=== PATIENT | female | born 1990 | race African-American/Black ===

== ENCOUNTER → 2023-10-29 07:51 | Outpatient (CLI) | payer OTHER, SELFPAY ==
--- NOTE | 2023-10-29 | DI.US.S_ITS ---
PROCEDURE: US PELVIC COMPLETE INDICATIONS: DYSPAREUNIA TECHNIQUE: Real-time scanning was performed of the pelvic organs, with image documentation. Additional endovaginal scanning was necessary due to incomplete visualization of the adnexal and endometrial structures by transabdominal scanning. COMPARISON: None. FINDINGS: Uterus: There is single IUP in the uterus. Uterus measures 11.5 x 5.3 cm. Cervix is 2.4 cm. The CRL is 0.79 cm, consistent with gestational age 6 week 5 day. Yolk sac is 0.45 cm. GSD is 2.76 cm consistent with gestational age 7 weeks 6 days heart rate is 143 beats per minute. Ovaries: The right ovary is 1.9 x 3.1 x 1.3 cm. The left ovary is 3.1 x 2.2 x 2.6 cm. No abnormalities demonstrated in the ovaries. No adnexal masses are seen. Other: No pathologic free abdominal or pelvic fluid. IMPRESSION: Single live IUP, ultrasound gestational age 6 weeks 5 days, YASMEEN June 18, 2024. >> We strive to produce accurate, complete, and clear reports of imaging services. To assist us in improving patient care, this report was composed using standard report templates and voice recognition software. Therefore, it may contain abnormal punctuation, insertions and/or omissions. Occasional wrong-word or sound-alike substitutions may occur. Though we review the report and make efforts to correct it, we do recommend that the report be read carefully in proper context to recognize any text inaccuracies. Dictated by: Alberto Butler M.D. on 11/01/2023 at 10:41 Approved by: Alberto Butler M.D. on 11/01/2023 at 10:56
== END ==
PROVIDERS: Referring Provider Nurse Practitioner Family; Visit Provider Nurse Practitioner Family
DX: N94.10 Unspecified dyspareunia (principal); Z33.1 Pregnant state, incidental; Z3A.01 Less than 8 weeks gestation of pregnancy
CPT/HCPCS: 76856

== ENCOUNTER → 2023-11-26 10:36 | Outpatient (CLI) | payer OTHER, SELFPAY ==
[2023-11-26 11:33] LABS: Appearance Urine UA CLEAR; Bilirubin Urine UA NEGATIVE (NEGATIVE); Color Urine UA YELLOW; Glucose Urine UA NEGATIVE (Negative); Ketones Urine UA TRACE (NEGATIVE); Leukocyte Esterase Urine UA NEGATIVE (NEGATIVE); Nitrite Urine UA NEGATIVE (Negative); Occult Blood Urine UA NEGATIVE (Negative); Protein Urine UA NEGATIVE (Negative); Urobilinogen Urine UA 0.2 E.U./dL (0.2)
[2023-11-26 11:56] LABS: Add Manual Diff / Slide Review NO; Basophils Absolute Auto 0 /uL (0-100); Basophils Percent Auto 0.2 % (0-2); Eosinophils Absolute Auto 100 /uL (0-450); Eosinophils Percent Auto 1.3 % (2-4); Hematocrit 33.5 % (36-46); Hemoglobin 11.8 g/dL (12.0-16.0); Lymphocytes Absolute Auto 1600 /uL (1100-4500); Lymphocytes Percent Auto 21.9 % (25-40); Mean Corpuscular HGB Conc 35.1 % (30-36); Mean Corpuscular Hemoglobin 30.4 PG (26-34); Mean Corpuscular Volume 86.8 fL (80-100); Monocytes Absolute Auto 500 /uL (0-900); Monocytes Percent Auto 7.3 % (3-14); Neutrophils Absolute Auto 5100 /uL (1500-7000); Neutrophils Percent Auto 69.3 % (50-75); Platelet Count 281 X10^3/uL (150-400); Red Blood Cell Count 3.86 X10^6/uL (4.0-5.2); Red Cell Distribution Width 13.2 % (11.6-14.8); White Blood Cell Count 7.4 X10^3/uL (4.5-11.0)
[2023-11-26 12:02] LABS: Natera Collection Specimen Collected
[2023-11-26 12:16] LABS: Alanine Aminotransferase 17 IU/L (<35); Aspartate Aminotransferase 20 IU/L (14-36); BUN Creatinine Ratio 14.3 (6-22); Blood Urea Nitrogen 8 mg/dL (7-17); Estimated Glomerular Filt Rate > 60 mL/min (>60); Uric Acid 3.2 mg/dL (2.5-6.2)
[2023-11-26 12:47] LABS: Hepatitis B Surface Antigen NEGATIVE s/c (NEGATIVE); Rubella Antibody IgG 8.3 IU/mL (>15)
[2023-11-26 12:57] LABS: HIV 1 & 2 Ab/Ag 4th Gen Combo NEGATIVE (NEGATIVE)
[2023-11-27 06:12] LABS: RPR Screen Non Reactive (Non Reactive)
[2023-11-27 07:36] LABS: Varicella IgG Antibody 552 index (Immune >165)
[2023-11-29 19:02] LABS: Hep C Virus Ab w/Reflex Quant NEGATIVE s/c (NEGATIVE)
== END ==
PROVIDERS: Referring Provider Family Medicine; Visit Provider Family Medicine
DX: O09.521 Supervision of elderly multigravida, first trimester (principal); I10 Essential (primary) hypertension
CPT/HCPCS: 36415; 80055; 81003; 82565; 84450; 84460; 84520; 84550; 86787; 86803; 86850; 86900; 86901; 87086; 87389

== ENCOUNTER → 2023-12-01 12:15 | Outpatient (CLI) | payer OTHER, SELFPAY ==
[2023-12-01 14:53] LABS: HCG Quantitative /Beta subunit 194190 mIU/mL
== END ==
PROVIDERS: Referring Provider Family Medicine; Visit Provider Family Medicine
DX: O20.9 Hemorrhage in early pregnancy, unspecified (principal)
CPT/HCPCS: 36415; 84702

== ENCOUNTER → 2023-12-03 07:45 | Outpatient (CLI) | payer OTHER, SELFPAY ==
[2023-12-03 10:55] LABS: HCG Quantitative /Beta subunit 200040 mIU/mL
== END ==
PROVIDERS: Referring Provider Family Medicine; Visit Provider Family Medicine
DX: O20.9 Hemorrhage in early pregnancy, unspecified (principal)
CPT/HCPCS: 36415; 84702

== ENCOUNTER → 2024-01-21 10:49 | Outpatient (CLI) | payer OTHER, SELFPAY ==
[2024-01-21 12:02] LABS: Creatinine Urine Random 32.55 mg/dL; Protein (Total) Urine Random 12 mg/dL (0-12); Protein Creatinine Ratio Urine 0.36 GRAM/24H
== END ==
PROVIDERS: Referring Provider Family Medicine; Visit Provider Family Medicine
DX: O10.912 Unspecified pre-existing hypertension complicating pregnancy, second trimester (principal); Z3A.18 18 weeks gestation of pregnancy
CPT/HCPCS: 82570; 84156

== ENCOUNTER → 2024-02-04 13:58 | Outpatient (CLI) | payer OTHER, SELFPAY ==
--- NOTE | 2024-02-04 13:59 | DI.US.S_ITS ---
PROCEDURE: US OB <= 14 WEEKS FETUS INDICATIONS: Anatomy scan OUTSIDE/PRIOR DATING DATA: Last menstrual period (LMP): 09/11/2023 LMP-based estimated date of delivery (YASMEEN): 06/17/2024 First dating scan (date and location): 10/29/2023 Estimated date of delivery (YASMEEN) from first dating scan: 06/18/2024 The calculations are made using the working YASMEEN of 06/17/2024. TECHNIQUE: Real-time scanning was performed of the fetus, with image documentation and biometric measurements. Endovaginal scanning: Not performed COMPARISON: 10/29/2023. FINDINGS: General: A single living intrauterine gestation is present. Presentation: Vertex Placenta: Placental position is posterior, without previa. Amniotic fluid index: 25.8 cm, normal range is 5-24 cm. Single deepest vertical pocket is 8.1 cm. heart rate: 145 beats per minute. Maternal cervical canal: Closed and measures 5.1 cm long. Normal lower limit is 2.5 cm. biometrics: Biparietal diameter: 4.8 cm, 20 weeks, 4 days. Head circumference: 19.0 cm, 21 weeks, 2 days. Abdominal circumference: 15.6 cm, 20 weeks, 6 days. Femur length: 3.8 cm, 22 weeks, 0 day. Clinically estimated gestational age: 20 weeks, 6 days Composite gestational age from present scan: 21 weeks, 1 day Estimated weight and percentile: 414 g, 70%. Anatomic survey: Neuro: Ventricles are non-dilated at less than 10 mm. Cisterna magna is normal at 3-11 mm. Cerebellum is normal in size and morphology. Nuchal skin fold: Normal at less than 6 mm between 14-21 weeks gestational age. Face: Nose and lips, facial profile are normal. Spine: No evidence for spina bifida. Heart: 4-chambered heart is present, with normal ventricular outflow tracts. Diaphragm: Diaphragm is intact. Stomach: Left-sided stomach is present. Kidneys: No hydronephrosis. Normal is less than 5 mm in 2nd trimester, less than 7 mm in 3rd trimester. Cord: 3-vessel cord has orthotopic insertion. Bladder: Normal in size. Extremities: All 4 extremities identified. IMPRESSION: 1. Single live intrauterine gestation with fetus in vertex presentation. heart rate is 145 beats per minute. Increased SUNNY at 25.8 cm suggestive of polyhydramnios. 2. Normal growth with estimated weight at 70%. 3. Normal anatomic survey. We strive to produce accurate, complete, and clear reports of imaging services. To assist us in improving patient care, this report was composed using standard report templates and voice recognition software. Therefore, it may contain abnormal punctuation, insertions and/or omissions. Occasional wrong-word or sound-alike substitutions may occur. Though we review the report and make efforts to correct it, we do recommend that the report be read carefully in proper context to recognize any text inaccuracies. Dictated by: Kt Winter M.D. on 02/04/2024 at 17:17 Approved by: Kt Winter M.D. on 02/04/2024 at 17:20
== END ==
PROVIDERS: Referring Provider Family Medicine; Visit Provider Family Medicine
DX: Z34.80 Encounter for supervision of other normal pregnancy, unspecified trimester (principal); Z3A.21 21 weeks gestation of pregnancy
CPT/HCPCS: 76811

== ENCOUNTER → 2024-03-03 10:47 | Outpatient (CLI) | payer OTHER, SELFPAY ==
--- NOTE | 2024-03-03 10:48 | DI.US.S_ITS ---
PROCEDURE: US OB LIMITED INDICATIONS: f/u polyhydramnios OUTSIDE/PRIOR DATING DATA: Last menstrual period (LMP): 09/11/2023. LMP-based estimated date of delivery (YASMEEN): 06/17/2024. First dating scan (date and location): 10/29/2023. Estimated date of delivery (YASMEEN) from first dating scan: 06/18/2024. The calculations are made using the working YASMEEN of 06/17/2024. TECHNIQUE: Real-time scanning was performed of the fetus, with image documentation. Endovaginal scanning: No COMPARISON: None. FINDINGS: A single living intrauterine gestation is present. Presentation: Vertex. Placenta: Placental position is posterior, without previa. Amniotic fluid index: 17.1 cm, normal range is 5-24 cm. Single deepest vertical pocket is 5.6 cm. heart rate: 137 beats per minute. Maternal cervical canal: 5.0 cm long. Normal lower limit is 2.5 cm. Clinically estimated gestational age: 24 week 6 day Estimated gestational age from initial scan: Not applicable. IMPRESSION: Single live intrauterine consistent with 24 week 6 day gestation Amniotic fluid index 17.1 cm, no polyhydramnios Approved by: Antwan Patel M.D. on 03/03/2024 at 17:56
== END ==
PROVIDERS: Referring Provider Family Medicine; Visit Provider Family Medicine
DX: Z34.82 Encounter for supervision of other normal pregnancy, second trimester (principal); Z3A.24 24 weeks gestation of pregnancy
CPT/HCPCS: 76815

== ENCOUNTER → 2024-03-24 08:22 | Outpatient (CLI) | payer OTHER, SELFPAY ==
[2024-03-24 09:03] LABS: Alanine Aminotransferase 35 IU/L (<35); Albumin 3.2 g/dL (3.5-5.0); Albumin Globulin Ratio 1.2 (1.0-2.8); Alkaline Phosphatase 71 U/L (38-126); Aspartate Aminotransferase 31 IU/L (14-36); BUN Creatinine Ratio 15.8 (6-22); Bilirubin Total 0.3 mg/dL (0.2-1.3); Blood Urea Nitrogen 9 mg/dL (7-17); Calcium 8.9 mg/dL (8.4-10.2); Carbon Dioxide 23 mmol/L (22-32); Chloride 106 mmol/L (98-107); Estimated Glomerular Filt Rate > 60 mL/min (>60); Globulin 2.6 g/dL (1.7-4.1); Glucose 94 mg/dL (70-100); HEMOLYSIS < 15 (0-50); Potassium 3.5 mmol/L (3.4-5.1); Sodium 134 mmol/L (137-145); Total Protein 5.8 g/dL (6.3-8.2)
== END ==
LOC: LAB 08:22
PROVIDERS: Referring Provider Family Medicine; Visit Provider Family Medicine
DX: O10.919 Unspecified pre-existing hypertension complicating pregnancy, unspecified trimester
CPT/HCPCS: 36415; 80053

== ENCOUNTER → 2024-03-25 10:39 | Outpatient (CLI) | payer OTHER, SELFPAY ==
[2024-03-25 11:17] LABS: Hematocrit 31.4 % (36-46); Hemoglobin 10.8 g/dL (12.0-16.0)
[2024-03-25 12:36] LABS: GTT (PREG) 1 Hour PP 50gm Dose 98 mg/dL (76-139)
== END ==
LOC: LAB 10:40
PROVIDERS: Referring Provider Family Medicine; Visit Provider Family Medicine
DX: Z34.80 Encounter for supervision of other normal pregnancy, unspecified trimester (principal)
CPT/HCPCS: 36415; 82950; 85014; 85018

== ENCOUNTER → 2024-05-19 08:19 | Outpatient (CLI) | payer OTHER, SELFPAY ==
[2024-05-20 12:34] LABS: Strep Grp B PCR NEG for Grp B Strep
== END ==
PROVIDERS: Visit Provider Family Medicine
DX: Z34.80 Encounter for supervision of other normal pregnancy, unspecified trimester (principal); Z36.85 Encounter for antenatal screening for Streptococcus B
CPT/HCPCS: 87653

== ENCOUNTER → 2024-05-29 11:20 | Outpatient (CLI) | payer OTHER, SELFPAY ==
[2024-05-29 12:07] LABS: Influenza A - CEPHEID Flu A POSITIVE (NEGATIVE); Influenza B - CEPHEID Flu B NEGATIVE (NEGATIVE); Respiratory Syncytial Virus Negative (Negative)
[2024-05-29 12:09] LABS: COVID-19 CEPHEID 4-PLEX PCR Negative (Negative)
== END ==
PROVIDERS: Visit Provider Nurse Practitioner Family
DX: J02.9 Acute pharyngitis, unspecified (principal); R05.9 Cough, unspecified
CPT/HCPCS: 0241U; 87070

== ENCOUNTER 2024-06-02 15:30 | Outpatient (CLI) | payer OTHER, SELFPAY ==
--- NOTE | 2024-06-02 16:44 | PM.OBTRLD ---
Visit Information Visit Information Date of evaluation: 06/02/24 Primary OB Provider: Mikie Faust Reason for Evaluation: Yes non-stress test non-stress test reason: hypertension/pre-eclampsia Comments/Additional reasons for admission: 33yo at [place] 37+6 presents for NST due to cHTN. [facility] Medical History (Updated 12/24/23 @ 11:03 by Mikie Faust MD) Pre-eclampsia, Diastasis recti Increased intraocular pressure (~2021) Normal endoscopic ultrasound of upper GI tract GERD (gastroesophageal reflux disease) (~2012) Abnormal Pap smear of cervix Surgical History (Updated 10/22/23 @ 15:40 by Erin Schulte, RN) History of removal of skin mole [place] teeth extracted History of surgical removal of ganglion cyst Status post cervical polyp removal (~2011) Family History (Updated 10/22/23 @ 16:22 by Erin Schulte, RN) Grandmother Diabetes mellitus Hypertension Mesothelioma Rheumatoid arthritis Carpal tunnel syndrome Grandfather End stage renal failure on dialysis Diabetes mellitus Grandmother Diabetes mellitus Father Pre-diabetes Mother Hypertension Pre-diabetes Sarcomatoid carcinoma of lung Brother Lupus Cardiomegaly Gunshot injury Sister Childhood asthma Brother Childhood asthma Son Seasonal allergies Multiple food allergies Eczema Social History marital status: number of children: 1 household members: spouse and children lives independently: Yes caregiver/support person: No housing: condominium ([facility]) pets and animals: No education level: master's degree 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) current occupational exposures/hazards: Yes (asbestos, paint fumes, unsanitary housing conditions) special magali needs: No travel history: recent (domestic only) seatbelt use: always water heater temp set < 120 deg: Yes working smoke detector in home: Yes fire extinguisher in home: No carbon monox detector in home: Yes firearms in home: No do you feel safe at home: Yes Smoking Status: Never smoker second hand exposure: No alcohol intake: former (very occasional glass of wine when not ) substance use type: does not use and other (CBD oil, not while /) during the past year weight has: remained stable well-balanced diet: daily or most days daily servings fruits/ve or more times/day caffeine: Yes (minimal, occasional cup coffee in AM) Type(s) of exercise: walking and other Objective Labs 06/02/24 16:25 06/02/24 16:25 Evaluation Evaluation Baseline heart rate: 125 Variability: Moderate (11-25) monitor accelerations: Present Monitor Decelerations: Absent Category of Tracing: Reactive Status: Category l Diagnosis, Plan/Disposition Final Diagnosis (1) Chronic hypertension affecting : Status: Acute Plan/Disposition Plan: NST reactive, Cat 1 FHT. Continue routine monitoring. OB Disposition: home
[2024-06-02 16:49] LABS: Add Manual Diff / Slide Review NO; Basophils Absolute Auto 0 /uL (0-100); Basophils Percent Auto 0.3 % (0-2); Eosinophils Absolute Auto 0 /uL (0-450); Eosinophils Percent Auto 0.5 % (2-4); Hematocrit 32.2 % (36-46); Hemoglobin 11.1 g/dL (12.0-16.0); Lymphocytes Absolute Auto 1300 /uL (1100-4500); Lymphocytes Percent Auto 18.1 % (25-40); Mean Corpuscular HGB Conc 34.5 % (30-36); Mean Corpuscular Hemoglobin 31.2 PG (26-34); Mean Corpuscular Volume 90.4 fL (80-100); Monocytes Absolute Auto 600 /uL (0-900); Monocytes Percent Auto 9.1 % (3-14); Neutrophils Absolute Auto 5100 /uL (1500-7000); Platelet Count 288 X10^3/uL (150-400); Red Blood Cell Count 3.56 X10^6/uL (4.0-5.2); Red Cell Distribution Width 13.7 % (11.6-14.8); White Blood Cell Count 7.1 X10^3/uL (4.5-11.0)
[2024-06-02 16:52] LABS: Alanine Aminotransferase 37 IU/L (<35); Albumin 3.4 g/dL (3.5-5.0); Alkaline Phosphatase 180 U/L (38-126); Aspartate Aminotransferase 38 IU/L (14-36); BUN Creatinine Ratio 9.2 (6-22); Bilirubin Total 0.4 mg/dL (0.2-1.3); Blood Urea Nitrogen 6 mg/dL (7-17); Calcium 9.7 mg/dL (8.4-10.2); Carbon Dioxide 23 mmol/L (22-32); Chloride 105 mmol/L (98-107); Estimated Glomerular Filt Rate > 60 mL/min (>60); Globulin 3.3 g/dL (1.7-4.1); Glucose 120 mg/dL (70-100); HEMOLYSIS < 15 (0-50); Sodium 136 mmol/L (137-145); Total Protein 6.7 g/dL (6.3-8.2)
[2024-06-02 18:08] LABS: Urine Chlamydia NOT DETECTED; Urine N gonorrhoeae NOT DETECTED
== END 2024-06-02 16:50 | disposition home or self-care (01) ==
LOC: OB 06-05 08:23
PROVIDERS: Referring Provider Family Medicine; Visit Provider Family Medicine
DX: O10.913 Unspecified pre-existing hypertension complicating pregnancy, third trimester (principal); Z3A.36 36 weeks gestation of pregnancy
CPT/HCPCS: 59025; 80053; 85025; 87491; 87591; G0378; G0379

== ENCOUNTER 2024-06-04 04:03 | Inpatient (IN) | payer OTHER, SELFPAY ==
[2024-06-04 05:25] LABS: Add Manual Diff / Slide Review NO; Basophils Absolute Auto 100 /uL (0-100); Basophils Percent Auto 0.8 % (0-2); Eosinophils Absolute Auto 100 /uL (0-450); Eosinophils Percent Auto 0.8 % (2-4); Hemoglobin 10.6 g/dL (12.0-16.0); Lymphocytes Absolute Auto 1500 /uL (1100-4500); Lymphocytes Percent Auto 22.1 % (25-40); Mean Corpuscular HGB Conc 34.3 % (30-36); Mean Corpuscular Hemoglobin 31.2 PG (26-34); Monocytes Absolute Auto 600 /uL (0-900); Monocytes Percent Auto 9.5 % (3-14); Neutrophils Absolute Auto 4500 /uL (1500-7000); Neutrophils Percent Auto 66.8 % (50-75); Platelet Count 330 X10^3/uL (150-400); Red Blood Cell Count 3.41 X10^6/uL (4.0-5.2); Red Cell Distribution Width 13.8 % (11.6-14.8); White Blood Cell Count 6.7 X10^3/uL (4.5-11.0)
[2024-06-04] MEDS: BENZOCAINE/MENTHOL 1 LOZ PKT 1 EACH PO ×4 (07:43→18:49)
--- NOTE | 2024-06-04 12:36 | PM.OBHP.IH.1 ---
OB HPI Date/Time Date of admission: 06/04/24 Date Patient Seen: 06/04/24 Time Patient Seen: 12:36 History of Present Condition Chief complaint: Labor YASMEEN Calculator Estimated Delivery Date Method Current WG Current Estimate 06/17/24 LMP (Certain) 38w 1d Other Estimates 06/18/24 Ultrasound #1 38w 0d Estimated Gestational Age (weeks): 38+1 : 2 Para: 1 Narrative: 33yo presenting in labor. SROM clear fluid early this morning around 0330. +FM, mild bloody show and lost mucous plug a few hours ago. No contractions initially but now feeling pretty regularly. course notable for AMA, cHTN well controlled w/o medication (on ASA 81 mg). care: good care Dating criteria OB: LMP confirmed by 1st trimester US Ultrasounds: normal 1st trimester US and normal mid trimester US Medical complications OB: cardiovascular (cHTN) Preadmission Labs Last OB Lab Results: Blood Type O Positive 06/04/24 05:10 Antibody Screen Negative 06/04/24 05:10 Hct 31.0 % (36-46) L 06/04/24 05:10 Hgb 10.6 g/dL (12.0-16.0) L 06/04/24 05:10 Hep Bs Antigen Negative s/c (NEGATIVE) 11/26/23 11:00 Hepatitis C Antibody Negative s/c (NEGATIVE) 11/26/23 11:00 Rubella Antibody 8.3 IU/mL (>15) L 11/26/23 11:00 VZV IgG Antibody 552 index (Immune >165) 11/26/23 11:00 Glucose 1 Hr 50 gm 98 mg/dL (76-139) 03/25/24 11:50 Group B Strep (PCR) Neg for grp b strep 05/19/24 08:15 Genetic Screens: Cell-free DNA: Normal Prior (ies) Past Pregnancies Del. Date GA/Weeks Labor Lgth Wt Sex Route Outcome Anesthesia Place Delv Breastfeed Preg Comp Name 09/19/19 38+ 7 6 lb 8 oz Male vaginal live - full term none [place], [place] 22 months none [place] Delivery Date: 09/19/19 Last Updated by: Erin Schulte RN 1st trimester bleeding, preeclampsia->chronic HTN Evaluation Evaluation Baseline heart rate: 120 Variability: Moderate (11-25) monitor accelerations: Present Monitor Decelerations: Absent Contraction Frequency (minutes): 5 Uterine Contraction Intensity: Moderate Category of Tracing: Reactive Status: Category l Non-invasive Membranes Rupture Test: positive Comments: Pt declines cervical exam until feels more uncomfortable [facility] Medical History (Updated 12/24/23 @ 11:03 by Mikie Faust MD) Pre-eclampsia, Diastasis recti Increased intraocular pressure (~2021) Normal endoscopic ultrasound of upper GI tract GERD (gastroesophageal reflux disease) (~2012) Abnormal Pap smear of cervix Surgical History (Updated 10/22/23 @ 15:40 by Erin Schulte RN) History of removal of skin mole [place] teeth extracted History of surgical removal of ganglion cyst Status post cervical polyp removal (~2011) Family History (Updated 10/22/23 @ 16:22 by Erin Schulte, HERNÁN) Grandmother Diabetes mellitus Hypertension Mesothelioma Rheumatoid arthritis Carpal tunnel syndrome Grandfather End stage renal failure on dialysis Diabetes mellitus Grandmother Diabetes mellitus Father Pre-diabetes Mother Hypertension Pre-diabetes Sarcomatoid carcinoma of lung Brother Lupus Cardiomegaly Gunshot injury Sister Childhood asthma Brother Childhood asthma Son Seasonal allergies Multiple food allergies Eczema Social History marital status: number of children: 1 household members: spouse and children lives independently: Yes caregiver/support person: No housing: condominium ([facility]) pets and animals: No education level: master's degree 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) current occupational exposures/hazards: Yes (asbestos, paint fumes, unsanitary housing conditions) special magali needs: No travel history: recent (domestic only) seatbelt use: always water heater temp set < 120 deg: Yes working smoke detector in home: Yes fire extinguisher in home: No carbon monox detector in home: Yes firearms in home: No do you feel safe at home: Yes Smoking Status: Never smoker second hand exposure: No alcohol intake: former (very occasional glass of wine when not ) substance use type: does not use and other (CBD oil, not while /) during the past year weight has: remained stable well-balanced diet: daily or most days daily servings fruits/ve or more times/day caffeine: Yes (minimal, occasional cup coffee in AM) Type(s) of exercise: walking and other Meds Home Medications and Allergies Home Medications Medication Instructions Recorded Confirmed Type magnesium carb,citrate,oxide mg PO 10/22/23 06/02/24 History (Magnesium Complex) vitamin-ferrous sulfate tab PO 10/22/23 06/02/24 History 27 mg iron-folic acid 0.8 mg tablet Allergies Allergy/AdvReac Type Severity Reaction Status Date / Time amoxicillin Allergy Intermediate Rash Verified 06/02/24 17:00 pistachio nut Allergy Intermediate ITCHING Verified 06/02/24 17:00 vancomycin Allergy Intermediate Hives Verified 06/02/24 17:00 cashew nut Allergy ITCHING Verified 06/02/24 17:00 Objective Labs 06/04/24 05:10 Labs: Laboratory Results - last 24 hr 06/04/24 05:10 WBC 6.7 RBC 3.41 L Hgb 10.6 L Hct 31.0 L MCV 91.0 MCH 31.2 MCHC 34.3 RDW 13.8 Plt Count 330 Neut % (Auto) 66.8 Lymph % (Auto) 22.1 L [place] % (Auto) 9.5 Eos % (Auto) 0.8 L Baso % (Auto) 0.8 Neut # (Auto) 4500 Lymph # (Auto) 1500 [place] # (Auto) 600 Eos # (Auto) 100 Baso # (Auto) 100 Blood Type O Positive Antibody Screen Negative Assessment and Plan Assessment and Plan Assessment and Plan narrative: 33-year-old at [place] 38+1 weeks presenting for labr. notable for cHTN on ASA 81 mg controlled w/o medication. -admit to L&D -GBS negative, ppx not indicated -pain control prn if desired by patient -PPH risk low -VTE risk low, SCDs with epidural -anticipate vaginal delivery Time-Based Coding :: 20 minutes spent with patient and on the chart (including review of chart, obtaining history, exam, reviewing outside data, placing orders, documenting exam and treatment plan, and counseling patient) on 06/04/2024.
[2024-06-04 19:42] VITALS: BP 121/66
--- NOTE | 2024-06-04 20:47 | PM.OBPNLAB ---
Date/Time Date Patient Seen: 06/04/24 Time Patient Seen: 20:50 Pain Control Pain control: tolerating well Comments: Contractions more regular and uncomfortable. Feeling more pelvic pressure. Pelvic Exam Dilation (cm): 5 Effacement (%): 70 station: -3 Amniotic membrane status: Ruptured Contractions Date/Time contractions began: 06/04/2024 at approximately 0330 Contractions on admission: irregular Monitor mode: External (intermittent) Contraction pattern: Regular Contraction intensity: Moderate Status status: Category l Heart Rate Baseline: 120 Monitor Accelerations: Present Monitor Decelerations: Absent Monitor Variability: Moderate Assessment and Plan Assessment: active labor Plan: continuous present management
--- NOTE | 2024-06-05 01:22 | PM.OBPNLAB ---
Date/Time Date Patient Seen: 06/05/24 Time Patient Seen: 01:22 Pain Control Pain control: tolerating well Pelvic Exam Dilation (cm): 10 Effacement (%): 100 station: 0 Amniotic membrane status: Ruptured Contractions Monitor mode: External (intermittent) Contraction pattern: Regular Contraction intensity: Moderate Status status: Category l Comments: FHR recorded via intermittent auscultation Assessment and Plan Assessment: active labor Comments: 33yo at [place] 38+2 weeks in labor. MWB: Tolerating labor without analgesia. Good support from and monument setter. FWB: Cat 1 FHR on intermittent auscultation. Labor: Complete dilation at approximately midnight, now ROM x22 hours. Pushed ineffectively for 1 hour. Plan: Concern for maternal exhaustion as length of labor now approaching 24 hours. Will break and allow to labor down for descent past pelvic brim. Has been resistant to intervention such as pitocin for labor augmentation up to this point. Discussed that augmenting contractions may help expedite descent and delivery. Pt will consider.
--- NOTE | 2024-06-05 02:26 | PM.OBPRVD ---
Labor & Delivery Delivery date: 06/05/24 Delivery Time: 02:10 Delivery monitor: external FHT (intermittent auscultation) Route of delivery: L&D Laceration Description: None Estimated blood loss (mL): 200 Anesthesia Type: None Narrative: Patient fully dilated at 0007 and began pushing at 0009. Spontaneous vaginal delivery of a viable male infant in the OA position occurred at 0210. Loose nuchal x2 was easily reduced at the perineum. The was suctioned and stimulated at the perineum, and gave appropriate cry with movement of all extremities. Delayed cord clamping was observed for >60 seconds. The cord was clamped and cut, and the handed to mother for skin to skin. Cord blood and segment were obtained. The placenta was delivered without difficulty using gentle cord traction and found to be intact with a 3-vessel cord. After fundal massage the uterus was firm and bleeding stopped. The vagina and cervix were examined for lacerations, with none noted. Patient stable with rooming in, bonding skin to skin and attempting to breastfeed. Baby 1: Infant gender: Male Presentation: vertex Placenta delivery description: Spontaneous Cord Vessel Description: 3 Vessels, Nuchal Cord (x2), Loose and Reduced score (1 min): 9 score (5 min): 9 weight: 7 lb 1.617 oz Plan for aftercare: Routine care
[2024-06-05] MEDS: ACETAMINOPHEN 325 MG TABLET 650 MG PO ×3 (03:24→19:31)
[2024-06-05] MEDS: IBUPROFEN 600 MG TABLET PO ×3 (03:24→19:30)
[2024-06-05] MEDS: DERMOPLAST SPRAY 20% 60 ML 1 SPRAY TOP (03:24)
[2024-06-05] MEDS: WITCH HAZEL/GLYCERIN PADS 1 EACH TOP (03:25)
[2024-06-05] MEDS: OXYCODONE IR 5 MG TABLET PO ×2 (05:25→14:37)
[2024-06-05] MEDS: FERROUS SULFATE 325 MG TABLET PO (09:30)
[2024-06-05] MEDS: LANOLIN OINT 7 GM 1 APPLIC TOP (18:56)
[2024-06-05] MEDS: BENZOCAINE/MENTHOL 1 LOZ PKT 1 EACH PO ×2 (19:31→21:25)
[2024-06-06] MEDS: ACETAMINOPHEN 325 MG TABLET 650 MG PO ×2 (01:36→07:27)
[2024-06-06] MEDS: IBUPROFEN 600 MG TABLET PO ×2 (01:36→07:27)
[2024-06-06] MEDS: BENZOCAINE/MENTHOL 1 LOZ PKT 1 EACH PO ×2 (01:37→10:33)
--- NOTE | 2024-06-06 08:17 | P.DS_ITS ---
Discharge Providers Provider Date of admission: 06/04/24 04:03 Discharge Date: 06/06/24 Primary care physician: Chapin MEJIAS Provider Consults: 06/04/24 04:46 Consult to Anesthesiology Urgent Comment: Consulting Provider: Anesthesiologist Reason for consultation: Epidural 06/06/24 02:29 Consult to Metal Cut Off Saw Operator Routine Comment: Discharge provider: Mikie Faust MD Summary Hospital Course Date Patient Seen: 06/06/24 Time Patient Seen: 07:45 Diagnoses: # #cHTN Hospital Course: Admitted for SROM on 06/04/2024. Progressed adequately without augmentation to complete dilation over the course of 20 hours. She had an uncomplicated of a live male with no laceration. Her course was uncomplicated. At discharge patient is ambulating well, tolerating normal diet, breast-feeding without difficulty, and pain is adequately controlled. She reports bleeding is heavier than normal menses. Peripartum Data Infant Delivery Method: Natural Vaginal Laceration Description: None complications: none [place] 1: Gender: Male Disposition of : home Discharge Diagnosis (1) (spontaneous vaginal delivery): Status: Acute (2) Chronic hypertension affecting : Status: Acute (3) Anemia affecting : Status: Acute (4) Rubella non-immune status, delivered, current hospitalization: Status: Acute Status at Discharge Cognitive/behavioral status at discharge: oriented Functional status at discharge: independent ambulation Overall status at discharge: patient is progressing back to baseline Time Spent with Patient Time attestation: Total time spent providing and/or coordinating discharge services: 30 minutes Objective Labs 06/04/24 05:10 Exam Narrative Exam Narrative: General: Well-appearing, well-nourished, no distress HEENT: Moist mucous membranes, no pallor CV: Regular rate and rhythm, no murmur auscultated Resp: CTAB, comfortable work of breathing Abdomen: Soft, bowel sounds present, fundus firm below umbilicus with appropriate tenderness Extremities: No edema, no calf tenderness or evidence of DVT Discharge Plan Discharge Plan Patient Disposition: Home Discharge orders & Medications Prescriptions: New acetaminophen 325 mg Tablet 650 mg PO Q6HR PRN (Reason: Pain, Mild (1-3)) Qty: 90 1RF Dermoplast (with menthol) 20-0.5 % Aerosol 1 spray topical Q1HR PRN (Reason: perineal pain) Qty: 56 1RF ferrous sulfate 325 mg (65 mg iron) Tablet 325 mg PO Q OTHER DAY Qty: 60 1RF ibuprofen 600 mg Tablet 600 mg PO Q6HR PRN (Reason: Pain, Mild (1-3)) Qty: 90 1RF polyethylene glycol 3350 17 gram/dose powder 17 g PO DAILY Qty: 510 1RF Continued vit-ferrous sulfat-FA 27 mg iron- 0.8 mg tablet PO Magnesium Complex 300 mg magnesium tablet PO Follow up/Referrals: Mikie Faust MD [Physician] - (Follow up in [address] Faust on July 18 at 2:30pm. Please arrive at 2:15pm. Blood Pressure check on WednesdayJune 09 at the appointment. ) Provider,Chapin MEJIAS [Primary Care Provider] - Visit Report/Discharge Packet Instructions: DI for Labor and Delivery, Vaginal Stand Alone Forms: Discharge: Care, Patient Portal/API, Stroke Signs & Symptoms Discharge Data Primary Care Provider: ProviderChapin Discharges patient from system. Discharge Date/Time: 06/06/24 14:05
[2024-06-06] MEDS: DOCUSATE 100 MG CAPSULE PO (09:12)
[2024-06-06] MEDS: FERROUS SULFATE 325 MG TABLET PO (09:13)
[2024-06-06 14:08] VITALS: BP 115/64; PULSE 75; RESP 18; TEMP 37
== END 2024-06-06 14:05 | disposition home or self-care (01) | DRG 806 ==
PROVIDERS: Admitting Provider Student in an Organized Health Care Education/Training Program; Referring Provider Student in an Organized Health Care Education/Training Program; Visit Provider Student in an Organized Health Care Education/Training Program
DX: O42.02 Full-term premature rupture of membranes, onset of labor within 24 hours of rupture (principal); O10.02 Pre-existing essential hypertension complicating childbirth; Z37.0 Single live birth; Z3A.38 38 weeks gestation of pregnancy
CPT/HCPCS: 36415; 59050; 84112; 85025; 86850; 86900; 86901; G0379

== ENCOUNTER → 2024-06-09 09:18 | Outpatient (CLI) | payer OTHER, SELFPAY ==
[2024-06-09 10:07] LABS: Add Manual Diff / Slide Review NO; Basophils Absolute Auto 0 /uL (0-100); Basophils Percent Auto 0.4 % (0-2); Eosinophils Absolute Auto 0 /uL (0-450); Eosinophils Percent Auto 0.7 % (2-4); Hematocrit 33.2 % (36-46); Hemoglobin 11.4 g/dL (12.0-16.0); Lymphocytes Absolute Auto 1200 /uL (1100-4500); Lymphocytes Percent Auto 20.9 % (25-40); Mean Corpuscular HGB Conc 34.3 % (30-36); Mean Corpuscular Hemoglobin 30.9 PG (26-34); Monocytes Absolute Auto 400 /uL (0-900); Monocytes Percent Auto 6.3 % (3-14); Neutrophils Absolute Auto 4300 /uL (1500-7000); Neutrophils Percent Auto 71.7 % (50-75); Platelet Count 400 X10^3/uL (150-400); Red Blood Cell Count 3.69 X10^6/uL (4.0-5.2); White Blood Cell Count 5.9 X10^3/uL (4.5-11.0)
[2024-06-09 10:40] LABS: Alanine Aminotransferase 165 IU/L (<35); Albumin 3.4 g/dL (3.5-5.0); Albumin Globulin Ratio 1.3 (1.0-2.8); Alkaline Phosphatase 150 U/L (38-126); Aspartate Aminotransferase 99 IU/L (14-36); BUN Creatinine Ratio 9.7 (6-22); Bilirubin Total 0.4 mg/dL (0.2-1.3); Blood Urea Nitrogen 6 mg/dL (7-17); Calcium 8.7 mg/dL (8.4-10.2); Carbon Dioxide 26 mmol/L (22-32); Chloride 104 mmol/L (98-107); Estimated Glomerular Filt Rate > 60 mL/min (>60); Globulin 2.7 g/dL (1.7-4.1); Glucose 77 mg/dL (70-100); HEMOLYSIS < 15 (0-50); Lactate Dehydrogenase 325 U/L (120-246); Potassium 4.2 mmol/L (3.4-5.1); Sodium 136 mmol/L (137-145); Total Protein 6.1 g/dL (6.3-8.2); Uric Acid 5.7 mg/dL (2.5-6.2)
[2024-06-09 12:15] LABS: Creatinine Urine Random 23.93 mg/dL; Protein (Total) Urine Random 15 mg/dL (0-12); Protein Creatinine Ratio Urine 0.62 GRAM/24H
== END ==
PROVIDERS: PCP Family Medicine; Referring Provider Family Medicine; Visit Provider Family Medicine
DX: O99.019 Anemia complicating pregnancy, unspecified trimester (principal); I10 Essential (primary) hypertension; Z86.79 Personal history of other diseases of the circulatory system; Z87.59 Personal history of other complications of pregnancy, childbirth and the puerperium
CPT/HCPCS: 36415; 80053; 82570; 83615; 84156; 84550; 85025